=== PATIENT | female | born 1980 | race Caucasian/White ===

== ENCOUNTER → 2017-10-31 | Outpatient (CLI) | payer BC ==
[~2017-10-31] MED LIST: AMOXICILLIN; AMOXICILLIN 8751 TAB PO; CLOMID50 MG PO; COLACE 100100 MG/CAP PO; CYMBALTA 60MG60 MG PO; CYMBALTA30 MG PO; FERATE27 MG PO; FORTAMET500 MG PO; IRON65 M1 PO; METFORMIN500 MG PO; MVI PO; PRENATAL VITAMI1 TA5 PO; PRENATAL1 TA1 PO; PRENATAL1 TA2 PO; PRILOSEC20 MG PO; PROMETHAZINE25 M1 PO; PROMETHAZINE25 MG RC; RANITIDINE HYD150 MG PO; RANITIDINE150 MG PO; ZANTAC150 MG PO
== END ==
LOC: MC.RAD 13:00
DX: N63.0 Unspecified lump in unspecified breast (principal)

== ENCOUNTER 2018-08-31 08:52 | Day surgery (SDC) | payer BC ==
[~2018-08-31] VITALS: Ht 170.2 cm; Wt 93.2 kg
[2018-08-31] VITALS (9 sets, daily range): BP systolic 98–119; BP diastolic 64–85; PULSE 77–93; TEMP 97.6–98.5
[~2018-08-31 08:52] MED LIST changes: +GLUCOPHAGE500 MG/TAB PO; +PRILOSEC 20MG20 MG PO
[2018-08-31 09:39] LABS: COLLECTION METHOD CLEAN CATCH
[2018-08-31 09:44] LABS: BASO # 0.1 (0.0-0.2); BASO % 0.6 % (0.0-2.0); EOS # 0.2 (0.0-0.7); EOS % 1.4 % (0-4.0); GRAN % 73.2 % (42.2-75.2); LYMPH # 1.8 (1.2-3.4); LYMPH % 16.6 % (20.0-51.0); MEAN CELL VOLUME 90 fl (80.0-100.0); MEAN CORPUSCULAR HEMOGLOBIN 30 pg (27.0-31.0); MEAN CORPUSCULAR HGB CONC 33 g/dl (33.0-37.0); MEAN PLATELET VOLUME 9.5 fl (7.4-10.4); MONO # 0.9 (0.1-0.6); MONO % 7.9 % (1.7-9.3); PLATELET COUNT 348 K/mm3 (130-400); REDCELL DISTRIBUTION WIDTH-CV 13.3 % (11.5-14.5)
[2018-08-31 09:47] LABS: MUCOUS Present /lpf; PH 6 (5-8); SQUAMOUS EPITHELIAL 0-2 /hpf; URINE APPEARANCE Clear; URINE BACTERIA None Seen /hpf; URINE BILIRUBIN Negative (NEGATIVE); URINE BLOOD Negative (NEGATIVE); URINE COLOR Yellow; URINE GLUCOSE Negative (NEGATIVE); URINE KETONE Negative (NEGATIVE); URINE LEUKOCYTE ESTERASE Negative (NEGATIVE); URINE NITRATE Negative (NEGATIVE); URINE PROTEIN(semi-quant) Negative (NEGATIVE); URINE RBC 0-2 /hpf; URINE UROBILINOGEN Negative (NEGATIVE)
[2018-08-31] MEDS ORDERED: PROZAC40 MG PO (09:54)
[2018-08-31] MEDS ORDERED: WELLBUTRIN XL150 MG PO (09:55)
[2018-08-31 09:56] LABS: ALBUMIN 3.9 gm/dL (3.5-5.0); BILIRUBIN,TOTAL 0.2 mg/dL (0.0-1.0); C-REACTIVE PROTEIN 2.9 mg/dL (0.0-0.9); CALCIUM 8.8 mg/dL (8.4-10.2); CREATININE, serum 0.75 mg/dL (0.52-1.25); POTASSIUM 3.7 mmol/L (3.4-5.0); TOTAL PROTEIN 7.2 gm/dL (6.4-8.2)
[2018-08-31] MEDS ORDERED: TOPAMAX50 MG PO (10:43)
--- NOTE | 2018-08-31 14:16 | NUR ---
AN 37YO FEMALE TO RM 8 PER WC FROM ER. ALERT ORIENTED X3, SIGNED CONSENT IN ER. AT BEDSIDE TIME OF TRANSFER ,LEFT TO HEEL BUILDER KIDS.
--- NOTE | 2018-08-31 14:27 | NUR ---
TO RM AT 1350- CALL LIGHT IN REACH
--- NOTE | 2018-08-31 18:55 | NUR ---
PT ARRIVED FROM SURGERY VIA [facility] [place] WITH AND CHILDREN AT SIDE. PT HAS 4 INCISION SITES THAT ARE GLUED WITH NO DRSG OVER SITES. PT ADVISES THAT RIGHT SIDE HURTS A LITTLE BECAUSE SHE MOVED FROM [facility] TO THE BED. PT WAS ADVISED NOT TO USE A STRAW TO DRINK WITH. PT HAS NO NEEDS AT THIS TIME, CALL LIGHT IN REACH AND FAMILY BY SIDE.
--- NOTE | 2018-09-01 01:06 | NUR ---
PT HAD HEADACHE EARILER AND ABDOMINAL WAS STARTING TO HURT, PAIN RATED AT A 5/10, GAVE DILAUDID TO PT. PT ADVISED THAT THE DILAUDID DID HELP HER. PT ALSO SLEEPING WITH BLANKET OVER TOP OF HEAD. PT HAS BEEN UP TO THE BATHROOM AND BACK TO BED. NO NEEDS AT THIS TIME CALL LIGHT WITHIN REACH.
[2018-09-01 04:27] VITALS: BP 101/68; PULSE 85; TEMP 98
--- NOTE | 2018-09-01 05:00 | NUR ---
PT HAS C/O NAUSEA, GAVE HER ZOFRAN. PT ADVISED THAT HEADACHE WAS COMING BACK. RATED ABOUT 5/10, GAVE MORTIN FOR PAIN WITH MILK. PT RESTING IN BED WITH NO FURTHER NEEDS CALL LIGHT WITHIN REACH.
--- NOTE | 2018-09-01 08:18 | NUR ---
Pt alert and oriented. Pt stable this am. Pt ambulated with SBA to bathroom this am. Pt felt better after ambulating. Pt ordered breakfast. Pt c/o migraine headache that pt believes is r/t no caffeine for a couple days. Pt given PRN Motrin early am. Pt has call light in reach and denies further needs. Pt abdominal 4 incision sites CDI and no drainage noted.
[2018-09-01 08:58] VITALS: BP 103/74; PULSE 89; TEMP 97.9
[2018-09-01 11:08] VITALS: BP 107/78; PULSE 97; TEMP 98.5
--- NOTE | 2018-09-01 14:18 | NUR ---
Plan to return home with Tian who is DPOA. Patient reports that she does not have any care needs at this time. Uses [facility] for RX, PCP Dr. Bui, [facility]. Client has concerns about work restrictions. SW notified nursing staff.
--- NOTE | 2018-09-01 15:10 | NUR ---
Discharge instructions reviewed with patient and family, verified understanding. Discharged ambulatory to auto/home with family at 1510.
== END 2018-09-01 15:10 | disposition home or self-care (01) ==
LOC: COL.ER 08:52 → SURG 13:26 → SDCO 13:26
PROVIDERS: Nurse Practitioner
DX: K80.12 Calculus of gallbladder with acute and chronic cholecystitis without obstruction (principal); E28.2 Polycystic ovarian syndrome; G43.909 Migraine, unspecified, not intractable, without status migrainosus; F32.9 Major depressive disorder, single episode, unspecified; Z79.899 Other long term (current) drug therapy
CPT/HCPCS: OP; J1170; J1885; J2405; J2543; J2704; J7030; J7120; Q9967

== ENCOUNTER 2018-11-06 18:04 | Emergency (ER) | payer OTHER, BC ==
[~2018-11-06] VITALS: Ht 167.6 cm; Wt 86.4 kg
[~2018-11-06 18:04] MED LIST changes: +PROZAC40 MG PO; +TOPAMAX50 MG PO; +WELLBUTRIN XL150 MG PO
[2018-11-06 18:11] VITALS: BP 134/89; TEMP 98.4
[2018-11-06] MEDS ORDERED: FLEXERIL 1010 MG/TAB PO (20:40)
[2018-11-06 20:55] VITALS: PULSE 85
== END 2018-11-06 20:55 | disposition home or self-care (01) ==
LOC: COL.ER 18:04
DX: S80.02XA Contusion of left knee, initial encounter (principal); S20.219A Contusion of unspecified front wall of thorax, initial encounter; V49.49XA Driver injured in collision with other motor vehicles in traffic accident, initial encounter; W22.11XA Striking against or struck by driver side automobile airbag, initial encounter; Z79.84 Long term (current) use of oral hypoglycemic drugs

== ENCOUNTER → 2018-12-21 | Outpatient (CLI) | payer BC ==
[~2018-12-21] MED LIST changes: +FLEXERIL 1010 MG/TAB PO
== END ==
LOC: COL.RAD 10:15
DX: G43.909 Migraine, unspecified, not intractable, without status migrainosus (principal); G44.209 Tension-type headache, unspecified, not intractable
CPT/HCPCS: A9585

== ENCOUNTER → 2020-02-27 | Outpatient (CLI) | payer BC | LOC: MC.RAD 08:55 | DX: Z12.31 Encounter for screening mammogram for malignant neoplasm of breast (principal) ==

== ENCOUNTER → 2021-03-01 | Outpatient (CLI) | payer BC | LOC: MC.RAD 10:41 | DX: Z12.31 Encounter for screening mammogram for malignant neoplasm of breast (principal) ==

== ENCOUNTER → 2022-03-22 | Outpatient (CLI) | payer BC | LOC: MC.RAD 14:23 | DX: Z12.31 Encounter for screening mammogram for malignant neoplasm of breast (principal) ==

== ENCOUNTER 2023-05-02 06:32 | Day surgery (SDC) | payer BC ==
[~2023-05-02] VITALS: Ht 167.6 cm; Wt 90.4 kg
[2023-05-02] VITALS (7 sets, daily range): BP systolic 94–114; BP diastolic 57–77; PULSE 66–86; TEMP 97.4–98.8
[2023-05-02] MEDS ORDERED: AMOXICILLIN/CLA1 TA1 PO (07:08)
[2023-05-02] MEDS ORDERED: VITAMIND3 5000 PO (07:08)
[2023-05-02] MEDS ORDERED: IRON TABLETS325 MG PO (07:09)
[2023-05-02] MEDS ORDERED: VITAMIN B11000 MCG/M IM (07:10)
[2023-05-02] MEDS ORDERED: VITAMIN C500 MG PO (07:10)
[2023-05-02] MEDS ORDERED: PHENTERMINE15 MG PO (07:12)
--- NOTE | 2023-05-02 11:10 | NUR ---
0925 RETURNS TO ROOM 6 PER CART. VERY DROWSY. AROUSES TO VERBAL STIMULI. RESP SPONTANEOUS, UNLABORED. HOB ELEVATED 30 DEGREES. VITAL SIGNS OBTAINED. MESH PANTIES ON. RECTAL AREA GAUZE IN PLACE. NO DRAINAGE OBSERVED CALL LIGHT AT SIDE 0940 REPOSITIONS SELF TO LEFT LATERAL POSITION. TOLERATES PO WATER 0957 IV AND PO MED GIVEN FOR RECTAL/PERINEAL DISCOMFORT. RATES 8-04/30 1010 REPORTS INCREASED COMFORT. 1018 DISCHARGE INSTRUCTIONS REVIEWED. PATIENT VERBALIZES UNDERSTANDING. COPY PROVIDED IN DISCHARGE FOLDER 1019 IV PAIN MED GIVEN FOR INCREASING RECTAL AREA DISCOMFORT. 02/27 1030 FRIEND HERE. PATIENT AWAKE, ALERT. CONVERSES APPROPRIATELY 1044 RATES RECTAL AREA DISCOMFORT 4-5/10 IV PAIN MED GIVEN 1055 REPORTS SIGNIFICANT INCREASE IN COMFORT. RATES PAIN 09/30 1100 SITS ON EDGE OF CART. DRESSES SELF
== END 2023-05-02 11:10 | disposition home or self-care (01) ==
LOC: SDCO 06:32
DX: K61.1 Rectal abscess (principal); K21.9 Gastro-esophageal reflux disease without esophagitis; Z79.899 Other long term (current) drug therapy
CPT/HCPCS: J0665; J0690; J2704; J3010; J7120